=== PATIENT | female | born 1970 | race Caucasian/White ===

== ENCOUNTER 2016-10-07 19:16 | Emergency (ER) | payer BC, OTHER ==
[2016-10-07] MEDS ORDERED: Proparacaine 0.5% Ophth Soln 15 ML Bottle EYELF ONE (20:18)
--- NOTE | 2016-10-07 20:38 | EDM.PDOC ---
ED HPI EYE COMPLAINT - General Chief Complaint: Eye Problems Stated Complaint: IRRITATED EYE Time Seen by Provider: 10/07/16 20:10 Source: Reports: Patient History Limitations: Reports: No limitations - History of Present Illness INITIAL COMMENTS - FREE TEXT/NARRATIVE: HISTORY AND PHYSICAL: History of present illness: Patient presents today with complaints of left eye pain discharge. She states earlier this afternoon she felt a foreign body sensation although there is no history of exposure to any possible foreign body. After that her pain began worsening and she started developing discharge and redness and photophobia. She denies contact use. She states she has had URI symptoms for about a week. No vision loss. No pain with movement of the eye. No other symptoms or complaints. No fever. Review of systems: As per history of present illness and below otherwise all systems reviewed and negative. Past medical history: As per history of present illness and as reviewed below otherwise noncontributory. Surgical history: As per history of present illness and as reviewed below otherwise noncontributory. Social history: No reported history of drug or alcohol abuse. Family history: As per history of present illness and as reviewed below otherwise noncontributory. Physical exam: HEENT: Atraumatic, normocephalic. Eyes: Pupils equal and reactive bilaterally. Right eye is normal. Left eye has mild erythema of eyelids. There is copious purulent appearing drainage. Eye seems somewhat cloudy. EOMs intact. Conjunctiva is injected. Fluoroscein stain reveals some uptake about 5 o'clock near the limbus. No foreign body noted. Lungs: No respiratory distress. Heart: Regular rate and rhythm. Abdomen: Soft, nondistended, nontender. Extremities: Atraumatic. Neuro: Awake, alert, oriented. Exam nonfocal. Therapeutics: oflaxacin ophthalmic Impression: Conjunctivitis Plan: I spoke with Dr. Rodriguez about the patient's exam findings. He wanted ofloxacin q 2hrs even through the night and wanted to see her in the morning. This information was given to the patient. She didn't have any questions or concerns. Definitive disposition and diagnosis as appropriate pending reevaluation and review of above. - Related Data Allergies/ADRs: Allergies No Known Allergies Allergy (Verified 05/12/15 09:03) Home Meds: Ambulatory Orders Medication Instructions Recorded Confirmed Cholestrol Medication 05/12/15 05/12/15 Lisinopril 2.5 mg PO 05/12/15 05/12/15 Social & Family History - Tobacco Use Smoking Status *Q: Never Smoker Second Hand Smoke Exposure: No - Recreational Drug Use Recreational Drug Use: No ED ROS GENERAL - Review of Systems Review Of Systems: ROS reveals no pertinent complaints other than HPI. ED EXAM GENERAL W FULL EYE - Physical Exam Exam: See Below (See history of present illness) Course - Vital Signs Last Recorded V/S: Last Vital Signs Temp 37.1 C 10/07/16 20:49 Pulse 80 10/07/16 20:49 Resp 16 10/07/16 20:49 BP 182/83 H 10/07/16 20:49 Pulse Ox 97 10/07/16 20:49 - Orders/Labs/Meds Meds: Medications Discontinued Medications Generic Name Dose Route Start Last Admin Trade Name Freq PRN Reason Stop Dose Admin Proparacaine HCl 1 ml 10/07/16 20:18 10/07/16 20:52 Proparacaine 0.5% Ophth Soln EYELF 10/07/16 20:19 3 drop ONETIME ONE Administration Departure - Departure Time of Disposition: 20:37 Disposition: Home, Self-Care 01 Clinical Impression: Conjunctivitis Qualifiers: Conjunctivitis type: unspecified Laterality: left Qualified Code(s): H10.9 - Unspecified conjunctivitis Instructions: Bacterial Conjunctivitis, Cxxm-by-Tunt Referrals: PCP,None [Primary Care Provider] - Forms: ED Department Discharge Additional Instructions: You will need to follow up with ophthalmology tomorrow morning. I spoke with Dr. Rodriguez today. Call the office first thing in the morning to arrange this appointment. Use eye drops every 2 hrs throughout the night. [facility] [address] [place] [id number]
[2016-10-07 20:57] VITALS: BP 182/83
== END 2016-10-07 20:48 | disposition home or self-care (01) ==
LOC: MW.ED 19:16
DX: H10.9 Unspecified conjunctivitis (principal)
CPT/HCPCS: 99282; 99283

== ENCOUNTER 2019-08-01 09:29 | Emergency (ER) | payer BC, OTHER ==
[2019-08-01] MEDS ORDERED: Sodium Chloride 0.9% 1,000 ML IV ONE ×2 (10:18→11:45)
[2019-08-01] MEDS ORDERED: Labetalol 100 MG/20 ML MDV IVPUSH ONE ×2 (10:18→11:24)
--- NOTE | 2019-08-01 10:23 | EDM.PDOC ---
ED HPI GENERAL MEDICAL PROBLEM - General Chief Complaint: Headache Stated Complaint: HEADACHE Time Seen by Provider: 08/01/19 09:33 Source of Information: Reports: Patient History Limitations: Reports: No Limitations - History of Present Illness INITIAL COMMENTS - FREE TEXT/NARRATIVE: HISTORY AND PHYSICAL: History of present illness: Patient is a 48-year-old female who presents to the ED today with concern of headache over the past 1 week. Patient states that this headache is unusual for her. Patient states she has had headaches in the past but generally they go away right away and do not last as long. Patient states that she is taken [id number] Excedrin Migraine, Tylenol, and ibuprofen on multiple occasions without relief of symptoms. 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 Patient denies any head trauma or injury. Patient states she did take her hypertensive medications this morning. Patient denies fever, chills, chest pain, shortness of breath, or cough. Denies neck stiff ness, change in vision, syncope, or near syncope. Denies nausea, vomiting, abdominal pain, diarrhea, constipation, or dysuria. Has not noted any blood in urine or stool. Patient has been eating and drinking appropriately. Review of systems: As per history of present illness and below otherwise all systems reviewed and negative. Past medical history: As per history of present illness and as reviewed below otherwise noncontributory. Surgical history: As per history of present illness and as reviewed below otherwise noncontributory. Social history: See social history for further information Family history: As per history of present illness and as reviewed below otherwise noncontributory. Physical exam: General: Patient is alert, oriented, and in no acute distress. Patient sitting comfortably on exam table. HEENT: Atraumatic, normocephalic, pupils equal and reactive bilaterally, negative for conjunctival pallor or scleral icterus, mucous membranes moist, TMs normal bilaterally, throat clear, neck supple, nontender, trachea midline. No drooling or trismus noted. No meningeal signs. No hot potato voice noted. Lungs: Clear to auscultation, breath sounds equal bilaterally, chest nontender. Heart: S1S2, regular rate and rhythm without overt murmur Abdomen: Soft, nondistended, nontender. Negative for masses or hepatosplenomegaly. Negative for costovertebral tenderness. Pelvis: Stable nontender. Genitourinary: Deferred. Rectal: Deferred. Skin: Intact, warm, dry. No lesions or rashes noted. Extremities: Atraumatic, negative for cords or calf pain. Neurovascular unremarkable. Neuro: Awake, alert, oriented. Cranial nerves II through XII unremarkable. Cerebellum unremarkable. Motor and sensory unremarkable throughout. Exam nonfocal. Notes: Upon my initial exam, bp 184/110. Patient states her BP is typical 140-150/90 at home. Patient does have resolution of her headache with improvement of blood pressure. Admission for observation was offered to patient but she declines at this time. Patient placed on expedited follow up list with primary care provider in regards to BP. Voices understanding and is agreeable to plan of care. Denies any further questions or concerns at this time. Diagnostics: CBC, CMP, UA, EKG, CXR, Head CT, Troponin, urine culture Therapeutics: NS, Labetalol, Zofran, Toradol, Meclizine Prescription: None Impression: Headache, improved Hypertension Transaminitis Plan: 1. Monitor BP closely at home as discussed. Follow up with a primary care provider as discussed. 2. Encourage small but frequent sips of fluid to prevent dehydration. 3. Alternate ibuprofen and Tylenol as directed for pain and discomfort. Return to the ED as needed and as discussed. Definitive disposition and diagnosis as appropriate pending reevaluation and review of above. Head Pain Score (Numeric/FACES): 8 - Related Data Allergies Allergy/AdvReac Type Severity Reaction Status Date / Time No Known Allergies Allergy Verified 08/01/19 10:05 Home Meds: Home Meds Valsartan 40 mg PO ASDIRECTED 08/01/19 [History] Past Medical History - Past Health History Medical/Surgical History: Denies Medical/Surgical History Genitourinary History: Reports: Renal Calculus [employer] History: Reports: - Infectious Disease History Infectious Disease History: Reports: Chicken Pox, Mumps, Scarlet Fever - Past Surgical History Female Surgical History: Reports: Kidney stone extraction, Lithotripsy/ESWL Social & Family History - Family History Family Medical History: Noncontributory - Tobacco Use Smoking Status *Q: Never Smoker - Caffeine Use Caffeine Use: Reports: None - Recreational Drug Use Recreational Drug Use: No ED ROS GENERAL - Review of Systems Review Of Systems: Comprehensive ROS is negative, except as noted in HPI. ED EXAM, GENERAL - Physical Exam Exam: See Below (see dictation) Course - Vital Signs Last Recorded V/S: Last Vital Signs Temp 97.5 F 08/01/19 10:06 Pulse 62 08/01/19 13:09 Resp 18 08/01/19 13:09 BP 152/79 H 08/01/19 13:09 Pulse Ox 97 08/01/19 13:09 - Orders/Labs/Meds Orders: Active Orders 24 hr Category Date Time Status Communication Order [RC] STAT Care 08/01/19 12:16 Active EKG Documentation Completion [RC] STAT Care 08/01/19 10:18 Active CULTURE URINE [RM] Stat Lab 08/01/19 11:50 Received Labs: Laboratory Tests 08/01/19 08/01/19 08/01/19 Range/Units 10:25 10:25 11:50 WBC 5.72 (4.0-11.0) K/uL RBC 4.93 (4.30-5.90) M/uL Hgb 14.4 (12.0-16.0) g/dL Hct 42.5 (36.0-46.0) % MCV 86.2 (80.0-98.0) fL MCH 29.2 (27.0-32.0) pg MCHC 33.9 (31.0-37.0) g/dL RDW Std Deviation 39.5 (28.0-62.0) fl RDW Coeff of Lisa 13 (11.0-15.0) % Plt Count 246 (150-400) K/uL MPV 10.50 (7.40-12.00) fL Neut % (Auto) 52.1 (48.0-80.0) % Lymph % (Auto) 35.7 (16.0-40.0) % [place] % (Auto) 8.6 (0.0-15.0) % Eos % (Auto) 3.3 (0.0-7.0) % Baso % (Auto) 0.3 (0.0-1.5) % Neut # (Auto) 3.0 (1.4-5.7) K/uL Lymph # (Auto) 2.0 (0.6-2.4) K/uL [place] # (Auto) 0.5 (0.0-0.8) K/uL Eos # (Auto) 0.2 (0.0-0.7) K/uL Baso # (Auto) 0.0 (0.0-0.1) K/uL Nucleated RBC % 0.0 /100WBC Nucleated RBCs # 0 K/uL Sodium 141 (136-145) mmol/L Potassium 3.9 (3.5-5.1) mmol/L Chloride 104 (98-107) mmol/L Carbon Dioxide 26.6 (21.0-32.0) mmol/L BUN 10 (7.0-18.0) mg/dL Creatinine 0.9 (0.6-1.0) mg/dL Est Cr Clr Drug Dosing 71.56 mL/min Estimated GFR (MDRD) > 60.0 ml/min Glucose 95 (74-106) mg/dL Calcium 9.5 (8.5-10.1) mg/dL Total Bilirubin 0.6 (0.2-1.0) mg/dL AST 41 H (15-37) IU/L ALT 84 H (14-63) IU/L Alkaline Phosphatase 97 (46-116) U/L Troponin I < 0.050 (0.000-0.056) ng/mL Total Protein 7.7 (6.4-8.2) g/dL Albumin 4.0 (3.4-5.0) g/dL Globulin 3.7 (2.6-4.0) g/dL Albumin/Globulin Ratio 1.1 (0.9-1.6) Urine Color YELLOW Urine Appearance HAZY Urine pH 5.5 (5.0-8.0) Ur Specific [place] 1.020 (1.001-1.035) Urine Protein NEGATIVE (NEGATIVE) mg/dL Urine Glucose (UA) NEGATIVE (NEGATIVE) mg/dL Urine Ketones NEGATIVE (NEGATIVE) mg/dL Urine Occult Blood NEGATIVE (NEGATIVE) Urine Nitrite NEGATIVE (NEGATIVE) Urine Bilirubin NEGATIVE (NEGATIVE) Urine Urobilinogen 0.2 (<2.0) EU/dL Ur Leukocyte Esterase SMALL H (NEGATIVE) Urine RBC 0-2 (0-2/HPF) Urine WBC 3-6 (0-5/HPF) Ur Epithelial Cells FEW (NONE-FEW) Urine Bacteria FEW (NEGATIVE) Urine Mucus LIGHT (NONE-MOD) Meds: Medications Discontinued Medications Generic Name Dose Route Start Last Admin Trade Name Alba PRN Reason Stop Dose Admin Sodium Chloride 1,000 mls @ 999 mls/hr 08/01/19 10:18 08/01/19 10:34 Normal Saline IV 08/01/19 11:18 999 mls/hr BOLUS ONE Administration Sodium Chloride 1,000 mls @ 999 mls/hr 08/01/19 11:45 08/01/19 12:00 Normal Saline IV 08/01/19 12:45 999 mls/hr .Bolus ONE Administration Ketorolac Tromethamine 30 mg 08/01/19 11:45 08/01/19 12:03 Toradol IVPUSH 08/01/19 11:46 30 mg ONETIME ONE Administration Labetalol HCl 20 mg 08/01/19 10:18 08/01/19 10:34 Normodyne IVPUSH 08/01/19 10:19 20 mg ONETIME ONE Administration Protocol Labetalol HCl 20 mg 08/01/19 11:24 08/01/19 11:37 Normodyne IVPUSH 08/01/19 11:25 20 mg ONETIME ONE Administration Protocol Meclizine HCl 25 mg 08/01/19 12:08 08/01/19 12:24 Antivert PO 08/01/19 12:09 25 mg ONETIME ONE Administration Ondansetron HCl 4 mg 08/01/19 11:42 08/01/19 11:44 Zofran IVPUSH 08/01/19 11:43 4 mg ONETIME ONE Administration Ondansetron HCl Confirm 08/01/19 11:42 08/01/19 11:45 Zofran Administered 08/01/19 11:43 Not Given Dose 4 mg .ROUTE .STK-MED ONE Departure - Departure Time of Disposition: 13:25 Disposition: Home, Self-Care 01 Clinical Impression: Transaminitis Headache Qualifiers: Headache type: unspecified Headache chronicity pattern: acute headache Intractability: not intractable Qualified Code(s): R51 - Headache Hypertension Qualifiers: Hypertension type: unspecified Qualified Code(s): I10 - Essential (primary) hypertension - Discharge Information Instructions: General Headache Without Cause, Hypertension, Worv-fa-Ouse Referrals: PCP,None [Primary Care Provider] - Michael Benavides MD [Physician] - 08/16/19 4:00 pm (Please arrive at 3:30 to door number [phone]. Please bring photo ID and insurance cards.) Forms: ED Department Discharge Additional Instructions: The following information is given to patients seen in the emergency department who are being discharged to home. This information is to outline your options for follow-up care. We provide all patients seen in our emergency department with a follow-up referral. The need for follow-up, as well as the timing and circumstances, are variable depending upon the specifics of your emergency department visit. If you don't have a primary care physician on staff, we will provide you with a referral. We always advise you to contact your personal physician following an emergency department visit to inform them of the circumstance of the visit and for follow-up with them and/or the need for any referrals to a consulting specialist. The emergency department will also refer you to a specialist when appropriate. This referral assures that you have the opportunity for follow-up care with a specialist. All of these measure are taken in an effort to provide you with optimal care, which includes your follow-up. Under all circumstances we always encourage you to contact your private physician who remains a resource for coordinating your care. When calling for follow-up care, please make the office aware that this follow-up is from your recent emergency room visit. If for any reason you are refused follow-up, please contact the [facility] Emergency Department at and asked to speak to the emergency department charge nurse. [facility] [address] [place] [address] [id number] [address] [id number] 1. Monitor BP closely at home as discussed. Follow up with a primary care provider as discussed. 2. Encourage small but frequent sips of fluid to prevent dehydration. 3. Alternate ibuprofen and Tylenol as directed for pain and discomfort. Return to the ED as needed and as discussed. Sepsis Event Note - Evaluation Sepsis Screening Result: No Definite Risk - Focused Exam Vital Signs: Vital Signs Temp Pulse Resp BP Pulse Ox 08/01/19 13:09 62 18 152/79 H 97 08/01/19 11:59 61 14 164/88 H 99 08/01/19 11:37 71 170/87 H 08/01/19 10:53 70 18 164/87 H 95 08/01/19 10:35 66 182/97 H 08/01/19 10:06 97.5 F 71 16 174/100 H 98 Date Exam was Performed: 08/01/19 Time Exam was Performed: 13:24 - My Orders Last 24 Hours: My Active Orders 08/01/19 10:18 EKG Documentation Completion [RC] STAT 08/01/19 11:50 CULTURE URINE [RM] Stat 08/01/19 12:16 Communication Order [RC] STAT - Assessment/Plan Last 24 Hours: My Active Orders 08/01/19 10:18 EKG Documentation Completion [RC] STAT 08/01/19 11:50 CULTURE URINE [RM] Stat 08/01/19 12:16 Communication Order [RC] STAT
[2019-08-01 11:17] LABS: BLOOD UREA NITROGEN,BUN 10 mg/dL (7.0-18.0); CARBON DIOXIDE,CO2 26.6 mmol/L (21.0-32.0); CHLORIDE,CL 104 mmol/L (98-107); GLUCOSE RANDOM 95 mg/dL (74-106); POTASSIUM,K 3.9 mmol/L (3.5-5.1); SODIUM,NA 141 mmol/L (136-145)
--- NOTE | 2019-08-01 11:19 | CR ---
Chest: Portable view of the chest was obtained. Comparison: No previous chest imaging. Heart size and mediastinum are normal for portable technique. Lungs are clear. Bony structures are grossly intact. Impression: 1. Nothing acute is seen on portable chest x-ray. Diagnostic code #1 This report was dictated in [place] Standard Time
--- NOTE | 2019-08-01 11:34 | CT ---
Head CT Technique: Multiple axial sections through the brain were obtained. Intravenous contrast was not utilized. Comparison: No prior intracranial imaging is available. Findings: Ventricles along with basal cisterns and sulci over convexities are within normal limits for the patient's age. No abnormal parenchymal densities are seen. No evidence of intracranial hemorrhage. No midline shift or mass effect is seen. Bone window settings were reviewed. No acute calvarial abnormality is appreciated. Mastoid sinuses and visualized paranasal sinuses show nothing acute. Impression: 1. Nothing acute is appreciated on noncontrast head CT exam. Diagnostic code #1 This report was dictated in [place] Standard Time
[2019-08-01] MEDS ORDERED: Ondansetron 4 MG/2 ML SDV ONE (11:42)
[2019-08-01] MEDS ORDERED: Ondansetron 4 MG/2 ML SDV IVPUSH ONE (11:42)
[2019-08-01] MEDS ORDERED: Ketorolac 30 MG/ML SDV IVPUSH ONE (11:45)
[2019-08-01] MEDS ORDERED: Meclizine 25 MG Tab PO ONE (12:08)
[2019-08-01 13:10] VITALS: BP 152/79; PULSE 62
== END 2019-08-01 13:10 | disposition home or self-care (01) ==
LOC: MW.ED 09:29
DX: R51 Headache (principal); I10 Essential (primary) hypertension; R74.0 Nonspecific elevation of levels of transaminase and lactic acid dehydrogenase [LDH]
CPT/HCPCS: 36415; 70450; 71045; 80053; 81001; 84484; 85025; 87086; 96361; 96374; 96375; 96376; 99285; A9270; J1885; J2405; J3490; J7030

== ENCOUNTER 2021-04-24 13:14 | Emergency (ER) | payer OTHER ==
[2021-04-24] MEDS ORDERED: Sodium Chloride 0.9% 2.5 ML Syringe FLUSH PRN (13:39)
[2021-04-24] MEDS ORDERED: Sodium Chloride 0.9% 10 ML Syringe FLUSH PRN (13:39)
--- NOTE | 2021-04-24 13:40 | PCM.EKG ---
#1 Interpretation EKG Interpretation Comments: ED sinus rhythm heart rate 88 OH 172 QT duration 465 QRS Mc[place] XIII QRS normal ST and T normal impression normal EKG
--- NOTE | 2021-04-24 13:41 | EDM.PDOC ---
ED HPI GENERAL MEDICAL PROBLEM - General Chief Complaint: Chest Pain Stated Complaint: CHEST PAIN AND PRESSURE Time Seen by Provider: 04/24/21 13:39 Source of Information: Reports: Patient History Limitations: Reports: No Limitations - History of Present Illness INITIAL COMMENTS - FREE TEXT/NARRATIVE: HISTORY AND PHYSICAL: History of present illness: The patient is a 51-year-old female with a history of hypertension who presents to the emergency department with complaints of chest pressure, dizziness, and not feeling quite right while sitting at her desk prior to arrival. The patient states she checked her watch and notes that her heart rate was 134 and she should seek immediate treatment. At present the patient's heart rate is 90 and she states that while she does not have the intense feeling that she had previously she still feels a little lightheaded. Patient has never experienced this before. She does not have any cardiac history. The patient has a family cardiac history of a her mother of an IL at the age of 45. The patient did not take any medications prior to arrival. Patient denies any fever, chills, headache, change in vision, syncope or near syncope. Denies any back pain, shortness of breath or cough. Denies any abdominal pain, vomiting, diarrhea, constipation or dysuria. Has not noted any blood in urine or stool. Patient has been eating and drinking appropriately. Review of systems: As per history of present illness and below otherwise all systems reviewed and negative. Past medical history: As per history of present illness and as reviewed below otherwise noncontributory. Surgical history: As per history of present illness and as reviewed below otherwise noncontributory. Social history: See social history for further information Family history: As per history of present illness and as reviewed below otherwise noncontributory. Physical exam: General: Well developed and well nourished. Alert and orientated x 3. Nontoxic in appearance and in no acute distress. Vital signs are stable and have been reviewed by me. Nursing notes were reviewed. HEENT: Atraumatic, normocephalic, pupils equal and reactive bilaterally, negative for conjunctival pallor or scleral icterus, mucous membranes moist, TMs normal bilaterally, throat clear, neck supple, nontender, trachea midline. No drooling or trismus noted. No meningeal signs. No hot potato voice noted. Lungs: Clear to auscultation bilaterally. No wheezes, rales, or rhonchi. Chest nontender. Normal work of breathing, no accessory muscles used. Heart: S1S2, regular rate and rhythm without overt murmur, gallops, or rubs. No JVD. No peripheral edema Abdomen: Soft, nondistended, nontender. Normoactive bowel sounds. Negative for masses or costovertebral tenderness. Skin: Intact, warm, dry. No lesions or rashes noted. Hematologic: No petechiae or purpra. Mucosa appropriate color and normal nail bed color and refill. Extremities: Atraumatic, moves all extremities per self without difficulty or deficits, negative for cords or calf pain. Neurovascular unremarkable. Neuro: Awake, alert, oriented. Cranial nerves II through XII unremarkable. Cerebellum unremarkable. Motor and sensory unremarkable throughout. Exam nonfocal. Psychiatric: Mood and affect are appropriate. Normal thought process. Answering questions appropriately. Notes: *This patient was seen and evaluated during the 2019 SARS-CoV-2 novel coronavirus pandemic period. Community viral transmission is ongoing at time of this encounter and the emergency department is operating under pandemic response procedures. Stated above the patient is a 50-year-old female who presents to the emergency department with complaints of chest pressure and lightheadedness while sitting at her desk prior to arrival. The patient looked at her watch and it was stated it was her heart rate was 134 and she needed to seek immediate attention. The patient states that she has never had anything like this happen in the past. She is a little anxious as her mother of an IL at the age of 45. The patient's exam is unremarkable. We will do a cardiac work-up and a D-dimer. The patient is agreeable with this plan. The patient CBC is unremarkable. The patient's D-dimer is 0.22 which is normal thus indicating not a pulmonary embolus. The patient seen in PSR palpable for a creatinine of 1.1 glucose of 137, AST of 44 and ALT of 95. The patient's troponin was less than 0.050. I have ordered a serial troponin IV 1422. The patient is agreeable with this plan. If any troponin is negative I will order a Zio patch for the patient and have her follow-up with her primary care. The patient's second troponin is less than 0.050. I will order a Zio patch for the patient and have her follow-up with her primary care. The patient was agreeable with this discharge plan. I have talked with the patient about today's findings, in addition to providing specific details for plan of care. Reassessment at the time of disposition demonstrates that the patient is in no acute distress. The patient is stable for discharge, counseling was provided and we discussed in great detail signs and symptoms that would prompt them to return to the Emergency Department. Medication, follow up and supportive care measures were reviewed and discussed. Voices understanding and is agreeable to plan of care. Denies any further questions or concerns at this time. Diagnostics: CBC, CMP, troponin, EKG, chest x-ray, D-dimer Prescription: Zio patch Impression: Tachycardia, dizziness Plan: 1. You were evaluated today on an emergent basis. Your complaints of heart racing and chest pressure while sitting at your office desk was evaluated with blood work, and EKG, and a chest x-ray. Your chest x-ray was normal. Your EKG was normal. Your CBC was WNL. The test that shows if you have a possible clot was also negative. Your cardiac enzyme that allows us to see if your heart has had damage or been stress was negative both times. Due to your family history of your mom having an IL and passing away at the age of 45 and your presentation prior to arrival we will set you up with a Zio patch that we will monitor your heart rhythms and you can follow-up with your primary care. If you have further chest pains, chest pressure, pain radiating up into your jaw or down your arm, please return to the emergency department as these are signs of a cardiac event. 2. You can alternate Tylenol and ibuprofen as needed for pain and fever management. 3. We encourage you to follow up with your primary care provider and/or recommended specialist in the next few days for re-evaluation and further care/management. 4. If your symptoms should worsen, new symptoms develop or any of the signs and symptoms we discussed should arise please return to the emergency room or call 911 (if needed). Definitive disposition and diagnosis as appropriate pending reevaluation and review of above. 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 ED EXAM, GENERAL - Physical Exam Exam: See Below (See dictation) Course - Vital Signs Last Recorded V/S: Last Vital Signs Temp 98.2 F 04/24/21 13:19 Pulse 75 04/24/21 17:30 Resp 18 04/24/21 17:30 BP 117/66 04/24/21 17:30 Pulse Ox 95 04/24/21 17:30 - Orders/Labs/Meds Labs: Laboratory Tests 04/24/21 04/24/21 04/24/21 Range/Units 13:22 13:22 13:22 WBC 7.50 (4.0-11.0) K/uL RBC 4.87 (4.30-5.90) M/uL Hgb 14.6 (12.0-16.0) g/dL Hct 41.8 (36.0-46.0) % MCV 85.8 (80.0-98.0) fL MCH 30.0 (27.0-32.0) pg MCHC 34.9 (31.0-37.0) g/dL RDW Std Deviation 40.9 (28.0-62.0) fl RDW Coeff of Lisa 13 (11.0-15.0) % Plt Count 322 (150-400) K/uL MPV 11.00 (7.40-12.00) fL Neut % (Auto) 57.5 (48.0-80.0) % Lymph % (Auto) 30.8 (16.0-40.0) % Wetzel % (Auto) 8.8 (0.0-15.0) % Eos % (Auto) 2.5 (0.0-7.0) % Baso % (Auto) 0.4 (0.0-1.5) % Neut # (Auto) 4.3 (1.4-5.7) K/uL Lymph # (Auto) 2.3 (0.6-2.4) K/uL Wetzel # (Auto) 0.7 (0.0-0.8) K/uL Eos # (Auto) 0.2 (0.0-0.7) K/uL Baso # (Auto) 0.0 (0.0-0.1) K/uL Nucleated RBC % 0.0 /100WBC Nucleated RBCs # 0 K/uL D-Dimer, Quantitative 0.22 (0.0-0.50) mg/L FEU Sodium 140 (136-145) mmol/L Potassium 3.4 L (3.5-5.1) mmol/L Chloride 100 (98-107) mmol/L Carbon Dioxide 27.0 (21.0-32.0) mmol/L BUN 16 (7.0-18.0) mg/dL Creatinine 1.1 H (0.6-1.0) mg/dL Est Cr Clr Drug Dosing 57.28 mL/min Estimated GFR (MDRD) 52.6 ml/min Glucose 137 H (74-106) mg/dL Calcium 9.0 (8.5-10.1) mg/dL Total Bilirubin 0.6 (0.2-1.0) mg/dL AST 44 H (15-37) IU/L ALT 95 H (14-63) IU/L Alkaline Phosphatase 91 (46-116) U/L Troponin I < 0.050 (0.000-0.056) ng/mL Total Protein 8.0 (6.4-8.2) g/dL Albumin 4.2 (3.4-5.0) g/dL Globulin 3.8 (2.6-4.0) g/dL Albumin/Globulin Ratio 1.1 (0.9-1.6) 04/24/21 Range/Units 16:19 WBC (4.0-11.0) K/uL RBC (4.30-5.90) M/uL Hgb (12.0-16.0) g/dL Hct (36.0-46.0) % MCV (80.0-98.0) fL MCH (27.0-32.0) pg MCHC (31.0-37.0) g/dL RDW Std Deviation (28.0-62.0) fl RDW Coeff of Lisa (11.0-15.0) % Plt Count (150-400) K/uL MPV (7.40-12.00) fL Neut % (Auto) (48.0-80.0) % Lymph % (Auto) (16.0-40.0) % Wetzel % (Auto) (0.0-15.0) % Eos % (Auto) (0.0-7.0) % Baso % (Auto) (0.0-1.5) % Neut # (Auto) (1.4-5.7) K/uL Lymph # (Auto) (0.6-2.4) K/uL Wetzel # (Auto) (0.0-0.8) K/uL Eos # (Auto) (0.0-0.7) K/uL Baso # (Auto) (0.0-0.1) K/uL Nucleated RBC % /100WBC Nucleated RBCs # K/uL D-Dimer, Quantitative (0.0-0.50) mg/L FEU Sodium (136-145) mmol/L Potassium (3.5-5.1) mmol/L Chloride (98-107) mmol/L Carbon Dioxide (21.0-32.0) mmol/L BUN (7.0-18.0) mg/dL Creatinine (0.6-1.0) mg/dL Est Cr Clr Drug Dosing mL/min Estimated GFR (MDRD) ml/min Glucose (74-106) mg/dL Calcium (8.5-10.1) mg/dL Total Bilirubin (0.2-1.0) mg/dL AST (15-37) IU/L ALT (14-63) IU/L Alkaline Phosphatase (46-116) U/L Troponin I < 0.050 (0.000-0.056) ng/mL Total Protein (6.4-8.2) g/dL Albumin (3.4-5.0) g/dL Globulin (2.6-4.0) g/dL Albumin/Globulin Ratio (0.9-1.6) Meds: Medications Discontinued Medications Generic Name Dose Route Start Last Admin Trade Name Prosperq PRN Reason Stop Dose Admin Sodium Chloride 2.5 ml 04/24/21 13:39 04/24/21 14:35 Sodium Chloride 0.9% 2.5 Ml Syringe FLUSH 2.5 ml ASDIRECTED PRN Administration Keep Vein Open Sodium Chloride 10 ml 04/24/21 13:39 04/24/21 14:34 Sodium Chloride 0.9% 10 Ml Syringe FLUSH 10 ml ASDIRECTED PRN Administration Keep Vein Open Departure - Departure Time of Disposition: 17:18 Disposition: Home, Self-Care 01 Condition: Good Clinical Impression: Chest pressure, Dizziness Instructions: Nonspecific Chest Pain, Adult, [id number], Dizziness, [id number] Referrals: PCP,None [Primary Care Provider] - Forms: ED Department Discharge Additional Instructions: The following information is given to patients seen in the emergency department who are being discharged to home. This information is to outline your options for follow-up care. We provide all patients seen in our emergency department with a follow-up referral. The need for follow-up, as well as the timing and circumstances, are variable depending upon the specifics of your emergency department visit. If you don't have a primary care physician on staff, we will provide you with a referral. We always advise you to contact your personal physician following an emergency department visit to inform them of the circumstance of the visit and for follow-up with them and/or the need for any referrals to a consulting specialist. The emergency department will also refer you to a specialist when appropriate. This referral assures that you have the opportunity for follow-up care with a specialist. All of these measure are taken in an effort to provide you with optimal care, which includes your follow-up. Under all circumstances we always encourage you to contact your private physician who remains a resource for coordinating your care. When calling for follow-up care, please make the office aware that this follow-up is from your recent emergency room visit. If for any reason you are refused follow-up, please contact the [facility] Emergency Department at and asked to speak to the emergency department charge nurse. [facility] - [facility] [address] [place] [address] [facility] [address] [place] [address] Plan: 1. You were evaluated today on an emergent basis. Your complaints of heart racing and chest pressure while sitting at your office desk was evaluated with blood work, and EKG, and a chest x-ray. Your chest x-ray was normal. Your EKG was normal. Your CBC was WNL. The test that shows if you have a possible clot was also negative. Your cardiac enzyme that allows us to see if your heart has had damage or been stress was negative both times. Due to your family history of your mom having an IL and passing away at the age of 45 and your presentation prior to arrival we will set you up with a Zio patch that we will monitor your heart rhythms and you can follow-up with your primary care. If you have further chest pains, chest pressure, pain radiating up into your jaw or down your arm, please return to the emergency department as these are signs of a cardiac event. 2. You can alternate Tylenol and ibuprofen as needed for pain and fever management. 3. We encourage you to follow up with your primary care provider and/or recomme nded specialist in the next few days for re-evaluation and further care/management. 4. If your symptoms should worsen, new symptoms develop or any of the signs and symptoms we discussed should arise please return to the emergency room or call 911 (if needed).
--- NOTE | 2021-04-24 14:54 | CR ---
INDICATION: Chest pressure. TECHNIQUE: Chest 2 views. COMPARISON: Chest radiograph 08/01/2019. FINDINGS: No focal consolidation, pleural effusion, or pneumothorax. Normal heart size and pulmonary vascularity. Surgical clips in the upper abdomen. Mild degenerative changes of the spine. IMPRESSION: No acute cardiopulmonary findings. Dictated by Jaylin Rey MD @ 04/24/2021 2:52:29 PM (Electronically Signed)
[2021-04-24 15:00] LABS: BLOOD UREA NITROGEN,BUN 16 mg/dL (7.0-18.0); CHLORIDE,CL 100 mmol/L (98-107); GLUCOSE RANDOM 137 mg/dL (74-106); POTASSIUM,K 3.4 mmol/L (3.5-5.1); SODIUM,NA 140 mmol/L (136-145)
[2021-04-24 17:31] VITALS: BP 117/66; PULSE 75
== END 2021-04-24 17:58 | disposition home or self-care (01) ==
LOC: MW.ED 13:14
DX: R07.89 Other chest pain (principal); R00.0 Tachycardia, unspecified; R42 Dizziness and giddiness; I10 Essential (primary) hypertension
CPT/HCPCS: 36415; 71046; 71046-26; 80053; 84484; 85025; 85379; 93005; 99285-25

== ENCOUNTER 2022-05-11 06:42 | Emergency (ER) | payer OTHER ==
[2022-05-11] MEDS ORDERED: Ibuprofen 800 MG Tab PO ONE (07:46)
[2022-05-11 09:48] VITALS: BP 128/76; PULSE 72
== END 2022-05-11 09:47 | disposition home or self-care (01) ==
LOC: MW.ED 06:42
DX: S60.211A Contusion of right wrist, initial encounter (principal); I10 Essential (primary) hypertension; W00.0XXA Fall on same level due to ice and snow, initial encounter
CPT/HCPCS: 72072; 72100; 73110; 73130; 73502; 99283; A9270; 99284

== ENCOUNTER 2023-01-07 12:17 | Day surgery (SDC) | payer OTHER ==
[~2023-01-07 12:17] MED LIST: Lactated Ringers 1,000 ML IV SCH; Propofol 200 MG/20 ML SDV ONE; Sodium Chloride 0.9% 10 ML Syringe FLUSH PRN; Sodium Chloride 0.9% 2.5 ML Syringe FLUSH PRN; Sodium Chloride 0.9% 20 ML SDV IV PRN; fentaNYL 100 MCG/2 ML SDV ONE
[2023-01-07] MEDS ORDERED: Ondansetron 4 MG/2 ML SDV ONE (14:41)
[2023-01-07 15:01] VITALS: BP 149/98; PULSE 61
== END 2023-01-07 15:15 | disposition home or self-care (01) ==
LOC: MW.SDS 12:17
PROVIDERS: ATTEND Surgery
DX: D12.3 Benign neoplasm of transverse colon (principal); K63.5 Polyp of colon; K64.9 Unspecified hemorrhoids; I10 Essential (primary) hypertension; J45.909 Unspecified asthma, uncomplicated; E55.9 Vitamin D deficiency, unspecified; E66.9 Obesity, unspecified; Z88.8 Allergy status to other drugs, medicaments and biological substances; Z80.0 Family history of malignant neoplasm of digestive organs; Z68.33 Body mass index [BMI] 33.0-33.9, adult; Z79.899 Other long term (current) drug therapy; Z98.890 Other specified postprocedural states; Z90.710 Acquired absence of both cervix and uterus; Z90.49 Acquired absence of other specified parts of digestive tract
CPT/HCPCS: 45380; J2405; J2704; J7120; 00811; J3010